=== PATIENT | female | born 1950 | race Caucasian/White ===

== ENCOUNTER 2023-12-27 00:28 | Inpatient (IN) | payer OTHER ==
[~2023-12-27] VITALS: Ht 157.5 cm; Wt 67.1 kg
[2023-12-27 01:33] LABS: Urine Bacteria None Seen /hpf (None Seen)
[2023-12-27 01:47] LABS: Urine Blood 2+ /uL (Negative); Urine Clarity Clear (Clear); Urine Color Colorless (Yellow); Urine Protein, UAD Negative (Negative); Urine Specific Gravity 1.012 (1.001-1.035); Urine Urobilinogen Normal (Negative); Urine WBC 2 /hpf (0 - 5); Urine pH 6.5 (5.0-9.0)
[2023-12-27] MEDS: PHENAZOPYRIDINE HCL 100 MG TAB PO ONE (02:38)
[2023-12-27] MEDS: KETOROLAC TROMETH 60MG/2ML VIAL IM ONE (02:39)
[2023-12-27] MEDS: cloNIDine HCL 0.1 MG TAB PO ONE (02:39)
[2023-12-27 06:14] LABS: INR 0.98 (0.9-1.15); Prothrombin Time 10.4 sec (9.3-11.8)
[2023-12-27 06:19] LABS: Basophils # (auto) 0 10 ^3/uL (0-0.2); Basophils % (auto) 0.3 % (0.0-2.0); Eosinophils # (auto) 0 10 ^3/uL (0-0.8); Eosinophils % (auto) 0.3 % (0.0-7.0); Hematocrit 46.4 % (36.0-46.0); Lymphocytes # (auto) 2.8 10 ^3/uL (0.4-5.4); Lymphocytes % (auto) 35.3 % (10.0-50.0); Mean Corpuscular Hemoglobin 32.4 pg (28.0-32.0); Mean Corpuscular Hgb Conc. 34.5 g/dL (32.0-36.0); Mean Corpuscular Volume 94.1 fL (80.0-100.0); Monocytes # (auto) 0.5 10 ^3/uL (0-1.3); Monocytes % (auto) 6.4 % (0.0-12.0); Neutrophils # (auto) 4.6 10 ^3/uL (1.6-8.6); Neutrophils % (auto) 57.7 % (37.0-80.0); Nucleated Red Blood Cells % 0.1 %; Platelet Count (auto) 208 10^3/uL (140-450); Red Blood Cells 4.93 10^6/uL (4.0-5.20); Red Cell Distribution Width 14.1 % (11.8-14.3); White Blood Cell 7.9 10^3/uL (4.4-10.8)
[2023-12-27 06:21] LABS: Albumin 5.2 g/dL (3.2-4.8); Alkaline Phosphatase 131 U/L (46-116); Anion Gap 11 (5-15); Aspartate Aminotransferase 24 U/L (13-40); Bilirubin, Total 2.3 mg/dL (0.2-1.0); Blood Urea Nitrogen 15 mg/dL (9-23); Calcium 10.6 mg/dL (8.7-10.4); Carbon Dioxide 25 mmol/L (20-31); Chloride 111 mmol/L (98-107); Glucose 129 mg/dL (74-106); Potassium 4.4 mmol/L (3.5-5.1); Sodium 147 mmol/L (136-145); Total Protein 8.2 g/dL (5.7-8.2)
[2023-12-27 06:23] LABS: Alanine Aminotransferase < 9 U/L (7-40)
[2023-12-27 06:24] LABS: Lactic Acid w/Reflex 2.3 mmol/L (0.4-2.0)
[2023-12-27 06:25] VITALS: PULSE 88; RESP 18; O2SAT 97
[2023-12-27] MEDS: SODIUM CHLORIDE 0.9% 1,000 ML IV ONE (07:01)
[2023-12-27] MEDS: metroNIDAZOLE 500MG/100ML 100 ML IV ONE (07:01)
[2023-12-27] MEDS: MORPHINE SULFATE 4 MG/ML SYR/VIAL IV ONE (07:03)
[2023-12-27] MEDS: ONDANSETRON HCL 4 MG/2 ML VIAL IV ONE (07:03)
[2023-12-27] MEDS ORDERED: NITROGLYCERIN 0.4 MG SL TAB SL PRN (07:15)
[2023-12-27] MEDS ORDERED: MORPHINE SULFATE INJ 2 MG/ml SYRG IV PRN ×2 (07:15)
[2023-12-27] MEDS ORDERED: ONDANSETRON HCL 4 MG/2 ML VIAL IV PRN (07:15)
[2023-12-27 07:25] VITALS: PULSE 88; RESP 12; O2SAT 93
[2023-12-27] MEDS ORDERED: DEXTROSE (50%) 50ML SYRG IV PRN (07:45)
[2023-12-27] MEDS: ENOXAPARIN SOD 40 MG/0.4 ML SYRINGE SC SCH (11:02)
[2023-12-27] MEDS: InsuLIN REG 1unit/0.01ml Soln (100units/ml) SC SCH (12:00)
[2023-12-27] MEDS: PIPERACILLIN-TAZOB 3.375GM 100 ML IV ONE (12:15)
[2023-12-27] MEDS: ACCU-CHEK COMFORT CURVE STRIP VI SCH (12:24)
[2023-12-27] MEDS: PIPERACILLIN-TAZOB 3.375GM 100 ML IV SCH (14:00)
[2023-12-27] MEDS: ceFAZolin 2 GM/D5W50ml 50 ML IV ONE (14:23)
[2023-12-27] MEDS: ACETAMINOPHEN 325 MG TAB PO PRN (14:30)
[2023-12-27] MEDS: SOD CHL 0.45% 1,000 ML IV SCH (14:37)
[2023-12-27 16:00] VITALS: BP 138/74; PULSE 76; RESP 18; TEMP 98.7; O2SAT 91
[2023-12-27] MEDS ORDERED: AUG875T PO ×2 (17:07→17:41)
[2023-12-27] MEDS ORDERED: LEVO75TA6 PO (17:20)
[2023-12-27] MEDS ORDERED: ROSU10TA64 PO (17:20)
[2023-12-27] MEDS ORDERED: GLIP5TAB21 PO (17:20)
== END 2023-12-27 18:43 | disposition home or self-care (01) | DRG 394 ==
LOC: ER 00:28 → TELE 07:09 → TELE-WESTW 14:57
PROVIDERS: ADMIT Nurse Practitioner Family; ATTEND Nurse Practitioner Family
DX: K35.80 Unspecified acute appendicitis (principal); E87.20 Acidosis, unspecified; N13.2 Hydronephrosis with renal and ureteral calculous obstruction; K29.70 Gastritis, unspecified, without bleeding; K81.9 Cholecystitis, unspecified; K52.9 Noninfective gastroenteritis and colitis, unspecified; E03.9 Hypothyroidism, unspecified; E11.9 Type 2 diabetes mellitus without complications; Z90.710 Acquired absence of both cervix and uterus
CPT/HCPCS: 36415; 71045; 74176; 80053; 81001; 82962; 83605; 85025; 85610; 86850; 86900; 86901; 93005; 96365; 96367; 96372; 96375; G0378; J1885; J2405; J2543; J3490